=== PATIENT | female | born 1975 | race Caucasian/White ===

== ENCOUNTER 2022-10-24 06:57 | Day surgery (SDC) | payer OTHER ==
[~2022-10-24] VITALS: Ht 172.7 cm; Wt 116.1 kg
[~2022-10-24 06:57] MED LIST: B12 ACTIVE1000 MCG PO; D3 + K2 DOTS 11 EACH PO; MAXFE CAPLET1 EAC1 PO; MAXIFED TABLET1 EACH PO; SYNTHROID150 MCG PO; ZANAFLEX2 M1 PO
== END 2022-10-24 18:30 | disposition home or self-care (01) ==
LOC: CIR.AMB 06:57
PROVIDERS: ATTEND Obstetrics & Gynecology Gynecology
DX: N84.0 Polyp of corpus uteri (principal); I10 Essential (primary) hypertension; Z20.822 Contact with and (suspected) exposure to COVID-19

== ENCOUNTER 2023-01-01 10:52 | Inpatient (IN) | payer OTHER ==
[~2023-01-01] VITALS: Ht 172.7 cm; Wt 117.9 kg
[2023-01-24 06:32] LABS: HEMATOCRIT 33.5 % (36.0-45.00); HEMOGLOBIN 10.7 g/dL (12.0-15.00); MEAN CELL VOLUME 84.3 fL (80.00-100.00); MEAN CORPUSCULAR HEMOGLOBIN 26.9 pg (27.00-32.0); MEAN CORPUSCULAR HGB CONC 31.9 g/dl (32.0-36.0); RED BLOOD COUNT 3.97 M/uL (4.00-6.00); RED CELL DISTRIBUTION WIDTH 14.4 % (11.5-14.5)
[2023-01-24 06:57] LABS: PLATELET COUNT 321 K/uL (150-450)
[2023-01-24 07:18] LABS: BILIRUBIN TOTAL 0.44 mg/dL (0.3-1.2); CALCIUM 8.3 mg/dL (8.5-10.1); CREATININE SERUM 0.62 mg/dL (0.55-1.02); GFR 103.18; GLOBULINA 3.4 G/DL (2.4-3.5); POTASSIUM 4.18 mEq/L (3.5-5.1); TOTAL PROTEIN 6.4 gm/dL (6.4-8.2)
== END 2023-01-24 14:17 | disposition home or self-care (01) | DRG 743 ==
LOC: SURG 01-09 07:00 → O/R 01-23 07:07 → SURG 01-23 12:45 → OB/GYN 01-24 04:24
PROVIDERS: Obstetrics & Gynecology; ADMIT Obstetrics & Gynecology Gynecology; ATTEND Obstetrics & Gynecology Gynecology
PROC: 0UT74ZZ Resection of Bilateral Fallopian Tubes, Percutaneous Endoscopic Approach (ICD-10-PCS; 2023-01-23)
PROC: 0UT94ZZ Resection of Uterus, Percutaneous Endoscopic Approach (ICD-10-PCS; principal; 2023-01-23 16:30)
DX: D25.1 Intramural leiomyoma of uterus (principal); D25.2 Subserosal leiomyoma of uterus; N80.03 Adenomyosis of the uterus; Z20.822 Contact with and (suspected) exposure to COVID-19